=== PATIENT | female | born 1995 | race Caucasian/White ===

== ENCOUNTER 2018-11-06 08:09 | Emergency (ER) | payer BC ==
--- NOTE | 2018-11-06 08:16 | EDPHY ---
HPI/HX/ROS/PE/MDM Narrative: CHIEF COMPLAINT: N/V, shaking HPI: This patient is a 23 year old female with no pertinent past medical history arriving via EMS. She has been feeling ill for two days with nausea and vomiting. EMS observed one episode of 10-15 seconds of shaking activity on scene; motions did not seem tonic-clonic. She was alert immediately following. Per EMS, vitals stable in transport, patient is afebrile. The patient denies diarrhea, hematemesis. Denies illicit drug use. She does use marijuana regularly , last use yesterday. EMS administered 500mL IV NS and 4mg IV Zofran for symptom relief. HPI largely obtained from EMS report at bedside. REVIEW OF SYSTEMS: A comprehensive 10 system review of systems is otherwise negative aside from elements mentioned in the history of present illness and medical decision making. PMH: Denies. SOCIAL HISTORY: Friend at bedside. Daily marijuana use. Does not abuse alcohol or illicit drugs. PHYSICAL EXAM: General:Patient is somnolent but conversant, in no acute distress. ENT:Eyes are normal to inspection. ENT inspection normal. Neck: Normal inspection. Full range of motion. Respiratory:No respiratory distress. Breath sounds normal bilaterally. Cardiovascular: Regular rate and rhythm. Strong peripheral pulses. Normal cap refill. Abdomen:The abdomen is nontender to palpation. There are no peritoneal signs. There are normal bowel sounds. Back: Normal to inspection. No tenderness to palpation. Skin: Normal color. No rash. Warm and dry. Extremities: Normal appearance. Full range of motion. Neuro: Oriented x3. Normal motor function. Normal sensory function. ED Course: 8:10 Met EMS on arrival 23 y/o female presents with nausea and vomiting ongoing for two days with several episodes of "uncontrollable shaking" this morning. Plan to administer 1L IV NS for hydration. Patient received 4mg IV Zofran prior to arrival. Plan for labs including CBC, chemistries, UA, liver, lipase. 8:35 Patient continues to vomit. Plan to administer 12.5mg IV Phenergan for antiemetic effects. Labs largely unremarkable. Patient had some relief from Phenergan, but this was short-lived. Plan to administers 2.5mg IV Haldol and 25mg IV Benadryl for further symptom relief. 9:32 Reassessed. Patient appears to be sleeping. She is arousable but will not respond to questions at this time. Patient continues to complain of nausea. 12:45 Patient is now feeling better and would like to go home. She declines further testing. Plan to discharge home in good condition with prescription for Phenergan suppositories for nausea relief. Follow up and return precautions discussed. She is comfortable with this plan. Etiology of symptoms is currently unknown but I see no sign of abdominal or neurologic emergency at this time. - Data Points Laboratory Results: Laboratory Results 11/06/18 09:07 11/06/18 09:07 11/06/18 11/06/18 11/06/18 09:07 09:07 09:07 WBC 9.31 10^3/uL 10^3/uL (3.80-9.50) RBC 4.74 10^6/uL 10^6/uL (4.18-5.33) Hgb 13.9 g/dL g/dL (12.6-16.3) Hct 40.9 % % (38.0-47.0) MCV 86.3 fL fL (81.5-99.8) MCH 29.3 pg pg (27.9-34.1) MCHC 34.0 g/dL g/dL (32.4-36.7) RDW 13.1 % % (11.5-15.2) Plt Count 214 10^3/uL 10^3/uL (150-400) MPV 10.1 fL fL (8.7-11.7) Neut % (Auto) 80.4 % H % (39.3-74.2) Lymph % (Auto) 12.1 % L % (15.0-45.0) [place] % (Auto) 6.6 % % (4.5-13.0) Eos % (Auto) 0.2 % L % (0.6-7.6) Baso % (Auto) 0.4 % % (0.3-1.7) Nucleat RBC Rel Count 0.0 % % (0.0-0.2) Absolute Neuts (auto) 7.48 10^3/uL H 10^3/uL (1.70-6.50) Absolute Lymphs (auto) 1.13 10^3/uL 10^3/uL (1.00-3.00) Absolute Monos (auto) 0.61 10^3/uL 10^3/uL (0.30-0.80) Absolute Eos (auto) 0.02 10^3/uL L 10^3/uL (0.03-0.40) Absolute Basos (auto) 0.04 10^3/uL 10^3/uL (0.02-0.10) Absolute Nucleated RBC 0.00 10^3/uL 10^3/uL (0-0.01) Immature Gran % 0.3 % % (0.0-1.1) Immature Gran # 0.03 10^3/uL 10^3/uL (0.00-0.10) Sodium 137 mEq/L mEq/L (135-145) Potassium 3.9 mEq/L mEq/L (3.5-5.2) Chloride 109 mEq/L mEq/L (97-110) Carbon Dioxide 22 mEq/l mEq/l (22-31) Anion Gap 6 mEq/L mEq/L (6-14) BUN 18 mg/dL mg/dL (7-23) Creatinine 0.7 mg/dL mg/dL (0.6-1.0) Estimated GFR > 60 Glucose 95 mg/dL mg/dL (70-100) Calcium 8.1 mg/dL L mg/dL (8.5-10.4) Total Bilirubin 0.7 mg/dL mg/dL (0.1-1.4) Conjugated Bilirubin 0.3 mg/dL mg/dL (0.0-0.5) Unconjugated Bilirubin 0.4 mg/dL mg/dL (0.0-1.1) AST 20 IU/L IU/L (14-46) ALT 30 IU/L IU/L (9-52) Alkaline Phosphatase 66 IU/L IU/L (38-126) Total Protein 6.3 g/dL g/dL (6.3-8.2) Albumin 3.6 g/dL g/dL (3.5-5.0) Lipase 76 IU/L IU/L (23-300) Beta HCG, Qual NEGATIVE Urine Color Urine Appearance Urine pH Ur Specific [place] Urine Protein Urine Ketones Urine Blood Urine Nitrate Urine Bilirubin Urine Urobilinogen Ur Leukocyte Esterase Urine RBC Urine WBC Ur Epithelial Cells Urine Bacteria Hyaline Casts Urine Mucus Urine Glucose 11/06/18 08:48 WBC RBC Hgb Hct MCV MCH MCHC RDW Plt Count MPV Neut % (Auto) Lymph % (Auto) [place] % (Auto) Eos % (Auto) Baso % (Auto) Nucleat RBC Rel Count Absolute Neuts (auto) Absolute Lymphs (auto) Absolute Monos (auto) Absolute Eos (auto) Absolute Basos (auto) Absolute Nucleated RBC Immature Gran % Immature Gran # Sodium Potassium Chloride Carbon Dioxide Anion Gap BUN Creatinine Estimated GFR Glucose Calcium Total Bilirubin Conjugated Bilirubin Unconjugated Bilirubin AST ALT Alkaline Phosphatase Total Protein Albumin Lipase Beta HCG, Qual Urine Color YELLOW Urine Appearance CLEAR Urine pH 5.0 (5.0-7.5) Ur Specific [place] 1.025 (1.002-1.030) Urine Protein 2+ H (NEGATIVE) Urine Ketones NEGATIVE (NEGATIVE) Urine Blood 1+ H (NEGATIVE) Urine Nitrate NEGATIVE (NEGATIVE) Urine Bilirubin NEGATIVE (NEGATIVE) Urine Urobilinogen NEGATIVE EU EU (0.2-1.0) Ur Leukocyte Esterase NEGATIVE (NEGATIVE) Urine RBC 1-3 /hpf /hpf (0-3) Urine WBC 1-3 /hpf /hpf (0-3) Ur Epithelial Cells TRACE /lpf /lpf (NONE-1+) Urine Bacteria TRACE /hpf H /hpf (NONE SEEN) Hyaline Casts 1-5 /lpf /lpf (0-1) Urine Mucus 2+ /lpf H /lpf (NONE-1+) Urine Glucose NEGATIVE (NEGATIVE) Medications Given: Discontinued Medications Diphenhydramine HCl (Benadryl Injection) 25 mg IVP EDNOW ONE Stop: 11/06/18 09:23 Last Admin: 11/06/18 09:26 Dose: 25 mg Haloperidol Lactate (Haldol Injection) 2.5 mg IV EDNOW ONE Stop: 11/06/18 09:23 Last Admin: 11/06/18 09:24 Dose: 2.5 mg Sodium Chloride (Ns) 1,000 mls @ 0 mls/hr IV ONCE ONE PRN Reason: Wide Open Stop: 11/06/18 08:18 Last Admin: 11/06/18 08:22 Dose: 1,000 mls Sodium Chloride (Ns) 1,000 mls @ 0 mls/hr IV EDNOW ONE; Wide Open PRN Reason: Protocol Stop: 11/06/18 08:20 Last Admin: 11/06/18 08:33 Dose: 1,000 mls Ondansetron HCl (Zofran) 4 mg IVP EDNOW ONE Stop: 11/06/18 08:20 Last Admin: 11/06/18 08:23 Dose: 4 mg Promethazine HCl (Phenergan) 12.5 mg IVP EDNOW ONE Stop: 11/06/18 08:38 Last Admin: 11/06/18 08:38 Dose: 12.5 mg General Initial Vital Signs: Initial Vital Signs Temperature (C) 36.4 C 11/06/18 08:13 Heart Rate 85 11/06/18 08:13 Respiratory Rate 18 11/06/18 08:13 Blood Pressure 138/82 H 11/06/18 08:13 O2 Sat (%) 97 11/06/18 08:13 O2 Delivery Mode Room Air Allergies/Adverse Reactions: No Known Allergies Allergy (Unverified 11/06/18 08:13) Home Medications: Medication Instructions Recorded Promethazine HCl [Phenergan 12.5mg 12.5 mg NC Q6 PRN #6 suppr 11/06/18 supp (*)] Departure - Departure Disposition: Home, Routine, Self-Care Clinical Impression: Nausea & vomiting Condition: Good Instructions: Acute Nausea and Vomiting (ED) Additional Instructions: Stay well hydrated. Use Phenergan as directed as needed for nausea. Return to the emergency department for uncontrollable vomiting, inability to toloerate fluids by mouth, high fever, severe abdominal pain or other worsening of condition. Referrals: Patti Willingham MD [Medical Doctor] - As per Instructions Prescriptions: Promethazine HCl [Phenergan 12.5mg supp (*)] 12.5 mg NC Q6 PRN #6 suppr PRN Reason: Nausea/Vomiting, Can'T Take Po Report Scribed for: Asael Ordaz Report Scribed by: Jahaira Stanton Date of Report: 11/06/18 Time of Report: 08:16 Physician Review and Approval Statement: Portions of this note were transcribed by an ED scribe. I personally performed the history, physical exam, and medical decision making; and confirm the accuracy of the information in the transcribed note.
[2018-11-06] MEDS ORDERED: NS 1,000 ML IV ONE ×2 (08:17→08:19)
[2018-11-06] MEDS ORDERED: ONDANSETRON 4 MG/2 ML VIAL IVP ONE (08:19)
[2018-11-06] MEDS ORDERED: PROMETHAZINE HCL 25 MG/ML INJ ONE (08:36)
[2018-11-06] MEDS ORDERED: PROMETHAZINE HCL 25 MG/ML INJ IVP ONE (08:37)
[2018-11-06 09:15] LABS: PLATELET COUNT 214 10^3/uL (150-400)
[2018-11-06] MEDS ORDERED: HALOPERIDOL LACT 5 MG/ML INJ ONE (09:22)
[2018-11-06] MEDS ORDERED: HALOPERIDOL LACT 5 MG/ML INJ IV ONE (09:22)
[2018-11-06 13:02] VITALS: BP 122/72
== END 2018-11-06 13:00 | disposition home or self-care (01) ==
DX: R11.2 Nausea with vomiting, unspecified (principal); E86.9 Volume depletion, unspecified
CPT/HCPCS: 96374; J1200; J1630; J2405; J2550

== ENCOUNTER 2019-01-16 08:52 | Inpatient (IN) | payer BC ==
--- NOTE | 2019-01-16 08:58 | EDPHY ---
General - History Smoking Status: Heavy smoker Time Seen by Provider: 01/16/19 08:57 Narrative: CLINICAL IMPRESSION: Nausea, vomiting and diarrhea ASSESSMENT/PLAN: Patient is a 23-year-old female with a history of endometriosis who presents to the emergency department with nausea, vomiting, diarrhea and generalized abdominal pain. Patient is afebrile, she is uncomfortable appearing actively dry heaving however not toxic-appearing. Her vital signs were reviewed, no findings to suggest sepsis. Her abdomen was soft and nondistended, diffuse nonfocal tenderness to palpation without peritoneal signs. Laboratory studies were obtained. CBC revealed mild leukocytosis, suspect reactive to persistent vomiting. Metabolic panel revealed no evidence of metabolic abnormality or acute kidney injury. negative. Urinalysis revealed ketones and 1+ bacteria, she does not have any urinary symptoms. This was sent for culture. Patient was given multiple doses of Haldol, Benadryl and Phenergan without relief of her nausea and vomiting. Patient denies recent cannabis use however U tox was obtained which was positive for cannabinoid. She will be admitted to the hospitalist service for intractable vomiting. On repeat examination her abdomen is soft with diffuse, nonfocal tenderness to palpation. I suspect her symptoms are most suggestive of viral gastroenteritis versus cyclical vomiting and possible hyperemesis cannabinoid. She remained hemodynamically stable. I spoke to Karla Webber, she will be admitted to Dr. Bonilla. DIFFERENTIAL DX: Differential diagnosis includes but not limited to and in no particular order viral gastroenteritis, gastritis, cholecystitis, appendicitis, bowel obstruction , bowel perforation, urinary tract infection, pyelonephritis ED COURSE: 0909: Discussed Haldol and Benadryl as option however patient is currently breast-feeding. Discussed with pharmacy, as long as patient bumps and numbness for at least 24 hr considered safe. Discussed this with patient and she would like to proceed. Case also discussed with Dr. Rosado. 0958: On repeat examination the patient is still complaining of feeling nauseous, writhing in the bed. Will give additional Haldol 1242: On repeat examination the patient reports that she is feeling better however feels very tired. She denies any abdominal pain to me. After I examined her the nurse notified me that the patient has recurrent vomiting. Will admit the patient. 1248: Discussed case with Rizwana LUNA, will admit for intractable vomiting. CHIEF COMPLAINT: Nausea, vomiting and diarrhea HPI: Patient is a 23-year-old female with a history of endometriosis who presents to the emergency department with 2 days of nausea, vomiting and diarrhea. Patient reports 2 days ago she had a sudden onset of nausea, vomiting and multiple episodes of nonbloody diarrhea. She is also complaining of generalized abdominal discomfort. She denies any fevers or chills, her appetite has been decreased secondary to nausea. She denies any chest pain or shortness of breath. She describes her abdominal pain as generalized and cramping in nature. She denies any pelvic pain, vaginal pain, vaginal bleeding or vaginal discharge. Last menstrual period was 2 weeks ago and normal. She did experience something similar several months ago, diagnosed with a reported viral gastroenteritis. She reports that she used to smoke marijuana however has since stopped. She denies any recent travel, known sick contacts or recent use of antibiotics. She is experiencing some dysuria, denies any hematuria or increased frequency. She is experiencing about 4-5 episodes of loose stools per day, denies melena or hematochezia. PMH: Endometriosis Pertinent Past Surgical History: Denies Family History: Not contributory Social History: Current everyday cigarette smoker, denies marijuana or alcohol use REVIEW OF SYSTEMS: All other systems negative Constitutional: Decreased appetite, denies fever or chills. Eyes: No discharge, vision change ENT: No sore throat, congestion, ear pain. Cardiovascular: No chest pain, no palpitations. Respiratory: No cough, no shortness of breath. Gastrointestinal: Generalized abdominal pain, nausea, vomiting and diarrhea. Genitourinary: Dysuria, no hematuria or frequency. Musculoskeletal: No back pain, joint swelling, joint pain, myalgias. Skin: No rashes, color change. Neurological: No headache, dizziness, weakness. PHYSICAL EXAM: General Appearance: Well-developed, uncomfortable appearing actively dry heaving however not toxic-appearing. HENT: Normocephalic, atraumatic. Bilateral external ears are normal. Bilateral tympanic membranes are normal with pearly russo reflex. Nares are clear, mucosa is pink. Oropharynx is clear however mucosa is dry, uvula is midline. There is no tonsillar enlargement or exudate. The dentition is normal. Eyes: PERRLA, EOMI. Conjunctiva pink, no pallor or injection. Neck: Supple, nontender, no lymphadenopathy, no midline pain, FROM, no meningismus. Respiratory: There are no retractions, lungs are clear to auscultation. Cardiac: Regular rate and rhythm, no murmurs or gallops. Gastrointestinal: Abdomen is soft and nondistended. Bowel sounds are present. Patient has diffuse, nonfocal tenderness to palpation without rigidity, guarding or focal peritoneal findings. Neurological: Alert and oriented x 3, CN 2-12 grossly intact, normal sensation and strength. Skin: Warm, dry, no rashes, no nodules on palpation. Musculoskeletal: Extremities are symmetrical, full range of motion, no tenderness, deformity, swelling, or erythema. Psychiatric: Mood and affect are normal, there is no agitation. MEDICAL DECISION MAKING: Patient was seen independently. Secondary supervising physician at time of evaluation was Dr. Rosado, he did not evaluate this patient. Diagnosis: Nausea, vomiting and diarrhea. Summary: See Assessment and Plan for summary of ED visit Clinical lab tests: ordered / reviewed. Independent visualization of images, tracing, or specimens: Yes. Decision to obtain medical records or history from someone other than the patient: No Review / Summarize previous medical records: Yes Discussed patient with another provider: Yes, Karla Mason NP Patient Progress: Stable, admit. (Divya Trinh) Medical Decision Making: PHYSICIAN DOCUMENTATION: The patient was evaluated and managed by the Physician Inspector Salvage and myself. I have reviewed the chart and agree with the findings and plan of care as documented. In addition, I examined the patient myself at 905. History confirmed as nausea and vomiting for 2 days. Physical findings as follows: Moderately anxious, no rebound or guarding on examination. Plan for symptomatic treatment. Surgical condition appears less likely. Will admit for intractable symptoms after multiple attempts at therapy were unsuccessful. I am the secondary supervising physician. (Kyrie Rosado) - Objective Vital Signs: Initial Vital Signs Temperature (C) 36.4 C 01/16/19 08:54 Heart Rate 61 01/16/19 08:54 Respiratory Rate 18 01/16/19 08:54 Blood Pressure 124/74 H 01/16/19 08:54 O2 Sat (%) 97 01/16/19 08:54 O2 Delivery Mode Room Air Allergies/Adverse Reactions: No Known Allergies Allergy (Verified 01/16/19 08:56) Home Medications: Medication Instructions Recorded Promethazine HCl [Phenergan 12.5mg 12.5 mg MA Q6 PRN #6 suppr 11/06/18 supp (*)] Herbals/Supplements -Info Only 1 ea PO DAILY 01/16/19 Ondansetron Odt [Zofran Odt] 4 mg PO Q8 PRN #5 tab 01/16/19 Laboratory Results: Laboratory Results 01/16/19 09:30 01/16/19 09:30 01/16/19 01/16/19 01/16/19 11:20 11:20 09:30 WBC RBC Hgb Hct MCV MCH MCHC RDW Plt Count MPV Neut % (Auto) Lymph % (Auto) [place] % (Auto) Eos % (Auto) Baso % (Auto) Nucleat RBC Rel Count Absolute Neuts (auto) Absolute Lymphs (auto) Absolute Monos (auto) Absolute Eos (auto) Absolute Basos (auto) Absolute Nucleated RBC Immature Gran % Immature Gran # Sodium Potassium Chloride Carbon Dioxide Anion Gap BUN Creatinine Estimated GFR Glucose Calcium Total Bilirubin Conjugated Bilirubin Unconjugated Bilirubin AST ALT Alkaline Phosphatase Total Protein Albumin Lipase Beta HCG, Qual NEGATIVE Urine Color YELLOW Urine Appearance HAZY Urine pH 6.0 (5.0-7.5) Ur Specific [place] 1.016 (1.002-1.030) Urine Protein NEGATIVE (NEGATIVE) Urine Ketones 1+ H (NEGATIVE) Urine Blood NEGATIVE (NEGATIVE) Urine Nitrate POSITIVE H (NEGATIVE) Urine Bilirubin NEGATIVE (NEGATIVE) Urine Urobilinogen NEGATIVE EU EU (0.2-1.0) Ur Leukocyte Esterase NEGATIVE (NEGATIVE) Urine RBC 1-3 /hpf /hpf (0-3) Urine WBC 1-3 /hpf /hpf (0-3) Ur Epithelial Cells TRACE /lpf /lpf (NONE-1+) Urine Bacteria 1+ /hpf H /hpf (NONE SEEN) Urine Mucus TRACE /lpf /lpf (NONE-1+) Urine Glucose NEGATIVE (NEGATIVE) Urine Opiates Screen NEGATIVE (NEGATIVE) Urine Barbiturates NEGATIVE (NEGATIVE) Ur Phencyclidine Scrn NEGATIVE (NEGATIVE) Ur Amphetamine Screen NEGATIVE (NEGATIVE) U Benzodiazepines Scrn NEGATIVE (NEGATIVE) Urine Cocaine Screen NEGATIVE (NEGATIVE) U Marijuana (THC) Screen NON-NEGATIVE H (NEGATIVE) 01/16/19 01/16/19 09:30 09:30 WBC 12.50 10^3/uL H 10^3/uL (3.80-9.50) RBC 5.34 10^6/uL H 10^6/uL (4.18-5.33) Hgb 16.1 g/dL g/dL (12.6-16.3) Hct 46.6 % % (38.0-47.0) MCV 87.3 fL fL (81.5-99.8) MCH 30.1 pg pg (27.9-34.1) MCHC 34.5 g/dL g/dL (32.4-36.7) RDW 13.3 % % (11.5-15.2) Plt Count 290 10^3/uL 10^3/uL (150-400) MPV 10.5 fL fL (8.7-11.7) Neut % (Auto) 80.3 % H % (39.3-74.2) Lymph % (Auto) 14.3 % L % (15.0-45.0) [place] % (Auto) 4.3 % L % (4.5-13.0) Eos % (Auto) 0.2 % L % (0.6-7.6) Baso % (Auto) 0.5 % % (0.3-1.7) Nucleat RBC Rel Count 0.0 % % (0.0-0.2) Absolute Neuts (auto) 10.04 10^3/uL H 10^3/uL (1.70-6.50) Absolute Lymphs (auto) 1.79 10^3/uL 10^3/uL (1.00-3.00) Absolute Monos (auto) 0.54 10^3/uL 10^3/uL (0.30-0.80) Absolute Eos (auto) 0.02 10^3/uL L 10^3/uL (0.03-0.40) Absolute Basos (auto) 0.06 10^3/uL 10^3/uL (0.02-0.10) Absolute Nucleated RBC 0.00 10^3/uL 10^3/uL (0-0.01) Immature Gran % 0.4 % % (0.0-1.1) Immature Gran # 0.05 10^3/uL 10^3/uL (0.00-0.10) Sodium 140 mEq/L mEq/L (135-145) Potassium 3.8 mEq/L mEq/L (3.5-5.2) Chloride 107 mEq/L mEq/L (97-110) Carbon Dioxide 22 mEq/l mEq/l (22-31) Anion Gap 11 mEq/L mEq/L (6-14) BUN 15 mg/dL mg/dL (7-23) Creatinine 0.8 mg/dL mg/dL (0.6-1.0) Estimated GFR > 60 Glucose 121 mg/dL H mg/dL (70-100) Calcium 9.7 mg/dL mg/dL (8.5-10.4) Total Bilirubin 0.8 mg/dL mg/dL (0.1-1.4) Conjugated Bilirubin 0.2 mg/dL mg/dL (0.0-0.5) Unconjugated Bilirubin 0.6 mg/dL mg/dL (0.0-1.1) AST 24 IU/L IU/L (14-46) ALT 25 IU/L IU/L (9-52) Alkaline Phosphatase 70 IU/L IU/L (38-126) Total Protein 7.7 g/dL g/dL (6.3-8.2) Albumin 4.8 g/dL g/dL (3.5-5.0) Lipase 76 IU/L IU/L (23-300) Beta HCG, Qual Urine Color Urine Appearance Urine pH Ur Specific [place] Urine Protein Urine Ketones Urine Blood Urine Nitrate Urine Bilirubin Urine Urobilinogen Ur Leukocyte Esterase Urine RBC Urine WBC Ur Epithelial Cells Urine Bacteria Urine Mucus Urine Glucose Urine Opiates Screen Urine Barbiturates Ur Phencyclidine Scrn Ur Amphetamine Screen U Benzodiazepines Scrn Urine Cocaine Screen U Marijuana (THC) Screen Medications Given: Lactated Ringer's (Lr) 1,000 mls @ 125 mls/hr IV CONT ETHAN Stop: 07/15/19 12:59 Last Admin: 01/16/19 13:47 Dose: 1,000 mls Discontinued Medications Diphenhydramine HCl (Benadryl Injection) 25 mg IVP EDNOW ONE Stop: 01/16/19 09:10 Last Admin: 01/16/19 09:36 Dose: 25 mg Diphenhydramine HCl (Benadryl Injection) 25 mg IVP EDNOW ONE Stop: 01/16/19 10:00 Last Admin: 01/16/19 10:31 Dose: 25 mg Haloperidol Lactate (Haldol Injection) 2.5 mg IVP EDNOW ONE Stop: 01/16/19 09:10 Last Admin: 01/16/19 09:16 Dose: 2.5 mg Haloperidol Lactate (Haldol Injection) 2.5 mg IVP EDNOW ONE Stop: 01/16/19 10:00 Last Admin: 01/16/19 10:31 Dose: 2.5 mg Sodium Chloride (Ns) 1,000 mls @ 0 mls/hr IV EDNOW ONE; Wide Open PRN Reason: Protocol Stop: 01/16/19 09:05 Last Admin: 01/16/19 09:37 Dose: 1,000 mls Sodium Chloride (Ns) 1,000 mls @ 0 mls/hr IV EDNOW ONE; Wide Open PRN Reason: Protocol Stop: 01/16/19 10:03 Last Admin: 01/16/19 10:31 Dose: 1,000 mls Promethazine HCl (Phenergan) 6.25 mg IVP ONCE ONE Stop: 01/16/19 11:39 Last Admin: 01/16/19 12:08 Dose: 6.25 mg Departure - Departure Disposition: [facility] Inpatient Acute Clinical Impression: Nausea & vomiting Qualifiers: Vomiting type: unspecified Vomiting Intractability: intractable Qualified Code( s): R11.2 - Nausea with vomiting, unspecified Diarrhea Qualifiers: Diarrhea type: unspecified type Qualified Code(s): R19.7 - Diarrhea, unspecified Abdominal pain Qualifiers: Abdominal location: generalized Qualified Code(s): R10.84 - Generalized abdominal pain Condition: Good
[2019-01-16] MEDS ORDERED: NS 1,000 ML IV ONE ×2 (09:04→10:02)
[2019-01-16] MEDS ORDERED: HALOPERIDOL LACT 5 MG/ML INJ IVP ONE ×2 (09:09→09:59)
[2019-01-16 09:44] LABS: PLATELET COUNT 290 10^3/uL (150-400)
[2019-01-16] MEDS ORDERED: PROMETHAZINE HCL 25 MG/ML INJ IVP ONE (11:38)
[2019-01-16] MEDS ORDERED: LR 1,000 ML IV SCH (13:00)
[2019-01-16] MEDS ORDERED: ACETAMINOPHEN 325 MG TAB PO PRN (14:40)
--- NOTE | 2019-01-16 16:01 | GHP ---
[f rep st] HISTORY AND PHYSICAL DATE OF ADMISSION: 01/16/2019 CHIEF COMPLAINT: Nausea, vomiting, diarrhea. HISTORY OF PRESENT ILLNESS: Mallory Gomez is a 23-year-old female with a history of endometriosis. She presented to the emergency room after having 2 days of nausea, vomiting, and diarrhea. She reported that approximately 2 days ago, her symptoms had started. She has had no episodes of any type of bloody diarrhea or melena. She denies any hematochezia. She denies any recent travel. No known sick contacts or any use of antibiotics. She is experiencing some dysuria and says that she has some burning with urination. She has had a fever approximately a day ago, but none since. She denies any type of chills. She has been vomiting for approximately 2 days. Her current symptoms occur and coincide with her menses cycle. This has occurred in the past. I have asked her if she has gotten any evaluation by an JAILER and she said they have not been helpful to her. She has a 2-year-old child at home that is breastfed only at night. Her mom is caring for her daughter. During my interview, she had a hard time focusing and was able to answer my questions with frequent prompting. She received medications for her nausea in the emergency room. PAST MEDICAL HISTORY: Endometriosis. PAST SURGICAL HISTORY: None. FAMILY HISTORY: Parents are healthy. SOCIAL HISTORY: She is currently in a relationship. She is not employed. She smokes approximately a half-pack of cigarettes a day. She denied cannabis use to the emergency room physician preschool assistant teacher, but I had told her it was in her urine, and she nodded her head yes. She does not drink alcohol. MEDICATIONS: Include Phenergan 12.5 mg per rectal q.6 hours p.r.n., Zofran ODT 4 mg q.8 hours p.r.n., and herbal supplements. ALLERGIES: No known allergies. REVIEW OF SYSTEMS: A 10-point review of system was performed and was negative other than pertinent positives in the HPI and Past Medical History. PHYSICAL EXAM: GENERAL: Mallory is a 23-year-old female who is quite sleepy during my interview and makes very little eye contact. VITAL SIGNS: Blood pressure is 125/64, heart rate is 67, respiratory rate of 14, O2 sats on room air 95%, temperature is 37.1 Celsius. EYES: EOMs are intact. No conjunctival injection noted. ENT: Normal ears. Hearing intact. NECK: Trachea is midline. CARDIOVASCULAR: She is in a regular rate and rhythm. No murmurs, rubs, or gallops noted. CHEST: Lungs normal respiratory effort. ABDOMEN: Soft, slightly tender in all quadrants with gentle Pap, without guarding. SKIN : No rashes or ulcers noted. MUSCULOSKELETAL: She is moving equally upper and lower extremities. PSYCHIATRIC: She is alert, very flat affect. She makes frequent jerking-type movements with her arms and her head, but is able to stop these when I ask her to. DATA REVIEWED: A chemistry panel shows a sodium 140, potassium 3.8, chloride of 107, BUN of 15, creatinine 0.8, glucose 121, calcium 9.7, bilirubin 0.8, conjugated 0.2, unconjugated 0.6, AST of 24, ALT 25, alk phos 70, total protein 7.7, lipase 76. screen is negative. CBC shows a white blood cell count of 12.5, hemoglobin 16.1, hematocrit 46.6, platelet count 290. Urine shows 1 positive ketone, positive nitrites, and 1+ bacteria. Toxicology is positive for marijuana. I reviewed the patient's care with Divya Trinh, physician preschool assistant teacher, in the emergency room. ASSESSMENT/PLAN: 1. Symptoms are most consistently that of viral gastroenteritis. Will give her supportive care with IV hydration and antiemetics. Continue close monitoring. 2. Abdominal pain. Most likely secondary to endometriosis. Encouraged her to work with an JAILER. 3. Leukocytosis. Likely stress induced. Will recheck labs in the morning. 4. Pyuria. Having some vague symptoms. Follow up with urine culture. If treated with antibiotics to note she is still breast feeding. 5. Positive cannabis use. She could have an underlying issue with hyperemesis syndrome. I reviewed that with her. 6. Hyperglycemia. Most likely stress induced. 7. Deep venous thrombosis prophylaxis. Low risk. 8. Length of stay. She will likely require less than a 2-midnight stay, which will make her observation status. This can be reevaluated in the morning. /[id number]/MODL MTDD
[2019-01-16] MEDS: ONDANSETRON DISINTEGRATING 4 MG TAB PO PRN (17:53)
[2019-01-16] MEDS: PROMETHAZINE HCL 25 MG/ML INJ IVP PRN (18:03)
[2019-01-16] MEDS ORDERED: CALCIUM CARBONATE 500 MG CHEWABLE TAB PO PRN (22:09)
[2019-01-17 05:42] LABS: PLATELET COUNT 223 10^3/uL (150-400)
[2019-01-17] MEDS: NICOTINE 14 MG/24 HR PATCH TD SCH (09:07)
[2019-01-17] MEDS: ONDANSETRON DISINTEGRATING 4 MG TAB PO PRN ×2 (10:52)
[2019-01-17] MEDS: PROMETHAZINE HCL 25 MG/ML INJ IVP PRN (11:15)
[2019-01-17] MEDS ORDERED: LORazepam 2 MG/ML INJ IVP ONE (12:06)
--- NOTE | 2019-01-17 12:20 | ASMTCMCOM ---
CM Note CM Note Notes: Pts case discussed w/ Dr. Garza. Pt is a 23 y/o female admitted for intractable vomiting. Dr. Garza is ordering a belly scan. Pt should not have any d/c needs. CM available for changes. Plan: Independent Date Signed: 01/17/2019 12:20 PM Electronically Signed By:KARLI Christian
--- NOTE | 2019-01-17 12:49 | HOSPPROG ---
Hospitalist Progress Note Assessment/Plan: 23 year old female with no significant pmh, here with ab pain and inatractable NV Ab pain- diffuse. White count up overnight. associated with NV, aside from bandemia no other lab abnormalities. Has hx of endometriosis but thinks this is subsantially different and worse. -check CT abdomen and pelvis intactable nausea and vomiting- not responsive to zofran and phenergan. given haldol and benadryl in the ER which worked. -cont zofran, phenergan -one time dose of ativan -CT as above Leukocytosis- initially thought to be stress response and could still be, but need to rule out acute GI pathology as well. UA not impressive, CT ab pending. PPX- SCDs, No heparin Fluids- normal saline Lytes- WNl Nutrition- clears Dispo- patient not clinically safe for dc home at this point. Will change to inpt Subjective: intractable nausea and vomitn and severe ab pain in her abdomen diffusely. Objective: Vital Signs Temp Pulse Resp BP Pulse Ox 36.9 C 58 L 16 121/76 H 94 01/17/19 07:25 01/17/19 07:25 01/17/19 07:25 01/17/19 07:25 01/17/19 07:25 Laboratory Results 01/17/19 04:45 01/17/19 04:29 01/16/19 01/17/19 01/18/19 05:59 05:59 05:59 Intake Total 300 Output Total 600 Balance -300 - Physical Exam Constitutional: uncomfortable Eyes: PERRL, anicteric sclera, EOMI Ears, Nose, Mouth, Throat: moist mucous membranes, hearing normal, ears appear normal, no oral mucosal ulcers Cardiovascular: regular rate and rhythym, no murmur, rub, or gallop Respiratory: no respiratory distress, no rales or rhonchi, clear to auscultation Gastrointestinal: tenderness Genitourinary: no bladder fullness, no bladder tenderness, no renal bruits Skin: no rashes or abrasions, no fluctuance, no induration Musculoskeletal: full muscle strength, no muscle tenderness, normal joint ROM Neurologic: AAOx3, sensation intact bilaterally Psychiatric: anxious Lymph, Heme, Immunologic: no cervical LAD ICD10 Worksheet Patient Problems: Problems Problem Status Onset Abdominal pain Acute Diarrhea Acute Nausea & vomiting Acute
[2019-01-17] MEDS ORDERED: IOPAMIDOL (ISOVUE-300) 100 ML BTL ONE (13:43)
--- NOTE | 2019-01-17 17:00 | PDMN ---
Medical Necessity Medical necessity: Change to inpt as of 01/17/19 @ 12:55, meets inpt criteria per MD order and MCG M-[id number], Vomiting, admission is indicated for vomiting that is severe or persistent and inability to maintain oral hydration (eg, needs IV fluid support) that persists after emergency department and observation care treatment. 23 y/o admitted w/intactable N/V and abd pain. Initially admitted as OBS, upgraded to inpt today for persistent N/V beyond OBS window of care, still needing IV antiemetic and rec'd IV Ativan also for nausea today, unable to tolerate PO- cont IVF, continues to have severe abd pain, abd CT today. Est LOS> 2MN for ongoing eval/management of above.
[2019-01-17] MEDS: ONDANSETRON 4 MG/2 ML VIAL IVP PRN (23:49)
[2019-01-18] MEDS: NICOTINE 14 MG/24 HR PATCH TD SCH (04:08)
[2019-01-18] MEDS: PROMETHAZINE HCL 25 MG/ML INJ IVP PRN (05:38)
[2019-01-18 07:57] VITALS: BP 115/70
[2019-01-18] MEDS: ONDANSETRON 4 MG/2 ML VIAL IVP PRN (07:59)
[2019-01-18 08:00] LABS: PLATELET COUNT 235 10^3/uL (150-400)
--- NOTE | 2019-01-18 14:49 | PDCONSULT ---
Composition Professor Note: Consultation at the request of Dr. Garza for right upper quadrant abdominal pain History of present illness This is a 23-year-old woman with known history of gallstones who presents to the hospital with epigastric and right flank pain. She had 1 episode of loose stool and underwent abdominal ultrasound, CT scan of the abdomen and pelvic ultrasound for this diagnosis. Her symptoms have somewhat abated over the course of the last 24 hr. She is able to tolerated diet and would like to schedule follow-up as an outpatient Past medical history: None Past surgical history: None Home medications: None Allergies: None Review of systems significant for episodic right upper quadrant abdominal pain Social history: Positive for marijuana and tobacco use. Lives with her mother and daughter. Exam: Alert oriented no distress Sclerae anicteric Regular rate and rhythm Abdomen soft flat Minimally tender right upper quadrant negative Danielle sign no rebound No scars The extremities without edema. 2+ over 2+ symmetric bilateral pulses Skin normal turgor and tone Normal affect No cervical supraclavicular adenopathy No elevation of AST ALT bilirubin. White blood cell count normalized to 9 from 15 yesterday Imaging reviewed personally on PACS agree with cholelithiasis and likely biliary colic The impression/Plan: Acute on chronic cholecystitis. Advance diet as tolerated follow-up in the outpatient environment 1-2 weeks all questions addressed regarding laparoscopic cholecystectomy. The risks benefits and alternatives as well as postoperative expectations. The patient is in agreement with the plan discuss this with Internal Medicine service
--- NOTE | 2019-01-18 15:48 | PDDCSUM ---
Discharge Summary Discharge Summary: Discharge diagnosis Intractable nausea and vomiting Abdominal pain Dehydration Cholelithiasis possible cholecystitis Patient is a 23-year-old female currently breast-feeding who was admitted with intractable nausea and vomiting. Her symptoms were thought to be due to viral gastroenteritis. However she developed intractable nausea and vomiting which persisted and so a CT of her abdomen and pelvis was obtained. CT revealed multiple gallstones and potential cholecystitis. An ultrasound of her abdomen and pelvis was also obtained which showed of follicular cyst along multiple gallstones, thickened gallbladder wall and chrystal cholecystic fluid consistent with cholecystitis. Her liver function tests were normal. General surgery was consulted for consideration of cholecystectomy while in-patient. However patient was feeling somewhat better and general surgery felt it would be appropriate to follow up in outpatient for cholecystectomy. On the day of discharge patient was feeling better able to tolerate p.o. And requesting discharge home. Disposition Home independent Medications See medication reconciliation list Follow-up Dr. Jazmin Springer from General surgery for consideration of cholecystectomy I spent over 30 min on the discharge of this patient
== END 2019-01-18 11:34 | disposition home or self-care (01) | DRG 446 ==
LOC: F3E 13:50 → OBSVTOIN 01-17 12:55
PROVIDERS: ADMIT Internal Medicine; ATTEND Internal Medicine
DX: K80.12 Calculus of gallbladder with acute and chronic cholecystitis without obstruction (principal); E86.0 Dehydration; F17.210 Nicotine dependence, cigarettes, uncomplicated; N80.9 Endometriosis, unspecified
CPT/HCPCS: 80305; 96374; J1200; J1630; J2060; J2405; J2550; Q9967

== ENCOUNTER 2019-02-26 09:49 | Observation (INO) | payer BC | END 2019-02-27 11:00 | disposition home or self-care (01) | LOC: FOB 14:45 ==